=== PATIENT | male | born 1985 | race Caucasian/White ===

== ENCOUNTER 2019-04-01 21:44 | Emergency (ER) | payer MEDICAID, OTHER ==
[~2019-04-01] VITALS: Ht 170.2 cm; Wt 81.9 kg
[2019-04-01 21:56] VITALS: BP 131/77
--- NOTE | 2019-04-01 23:22 | NUR ---
pt to room from lobby
--- NOTE | 2019-04-01 23:35 | NUR ---
PT PRESENTED WITH C/O N/V/D AND STATED HE NEEDS WORK NOTE TO RETURN TO WORK. MONITORS APPLIED, SIDERAILS UP X2, CALL LIGHT WITHIN REACH
== END 2019-04-02 00:02 | disposition home or self-care (01) ==
LOC: ED 23:59
DX: R11.2 Nausea with vomiting, unspecified (principal); R19.7 Diarrhea, unspecified
CPT/HCPCS: 99283

== ENCOUNTER 2019-04-12 15:53 | Emergency (ER) | payer OTHER ==
[~2019-04-12] VITALS: Ht 172.7 cm; Wt 88.0 kg
[2019-04-12 16:19] VITALS: BP 126/79
[2019-04-12] MEDS ORDERED: AZITHROMYCIN 500 MG TABLET PO ONE (16:30)
[2019-04-12] MEDS ORDERED: CEFTRIAXONE 250 MG IM ONE (16:30)
[2019-04-12] MEDS ORDERED: AZITHROMYCIN 500 MG TABLET ONE (16:43)
[2019-04-12] MEDS ORDERED: LIDOCAINE-MPF 1%, 2ML ONE (16:43)
[2019-04-12] MEDS ORDERED: CEFTRIAXONE 250 MG ONE (16:43)
--- NOTE | 2019-04-12 17:03 | NUR ---
Discharge instructions discussed with patient including when to return to emergency department, verbalizes understanding. Prescriptions provided with instruction for use.
== END 2019-04-12 17:06 | disposition home or self-care (01) ==
LOC: ED 17:00
DX: N34.1 Nonspecific urethritis (principal); J00 Acute nasopharyngitis [common cold]; B00.9 Herpesviral infection, unspecified; Z76.0 Encounter for issue of repeat prescription
CPT/HCPCS: 71046; 87491; 87591; 96372; 99284; J0696

== ENCOUNTER 2019-11-23 18:50 | Emergency (ER) | payer MEDICAID ==
[~2019-11-23] VITALS: Ht 175.3 cm; Wt 84.0 kg
[2019-11-23 18:53] VITALS: BP 105/72
--- NOTE | 2019-11-23 19:01 | NUR ---
PT FRIEND LATHA WHO IS HIS RIDE HOME #[phone]
--- NOTE | 2019-11-23 19:44 | NUR ---
Patient requesting his girlfriend, Pema, be called to ask her if she's coming to the hospital with him. Attempted to call multiple times with no success.
[2019-11-23] MEDS ORDERED: PROPARACAINE OPHTH 0.5%, 15ML ONE (19:56)
[2019-11-23] MEDS ORDERED: FLUORESCEIN OPHTHALMIC 1 MG STRIP ONE (19:56)
[2019-11-23] MEDS ORDERED: OFLOXACIN OPHTH 0.3%, 5ML EACHEYE SCH (20:30)
== END 2019-11-23 21:51 | disposition home or self-care (01) ==
LOC: ED 19:30
DX: H16.013 Central corneal ulcer, bilateral (principal); H10.023 Other mucopurulent conjunctivitis, bilateral; R00.0 Tachycardia, unspecified; F17.200 Nicotine dependence, unspecified, uncomplicated
CPT/HCPCS: 93005; 99283